=== PATIENT | male | born 1955 | race Caucasian/White ===

== ENCOUNTER 2022-01-21 08:03 | Emergency (ER) | payer MEDICARE, MEDICAID ==
[~2022-01-21] VITALS: Ht 177.8 cm; Wt 163.6 kg
[2022-01-21 08:18] VITALS: BP 134/77
[2022-01-21] MEDS ORDERED: bacitracin 15gm ointment TP ONE (09:10)
== END 2022-01-21 09:36 | disposition home or self-care (01) ==
LOC: ER 08:04
DX: R19.05 Periumbilic swelling, mass or lump (principal); Z88.0 Allergy status to penicillin
CPT/HCPCS: 99282

== ENCOUNTER 2023-03-15 14:42 | Emergency (ER) | payer OTHER, MEDICARE, MEDICAID ==
[~2023-03-15] VITALS: Ht 177.8 cm; Wt 140.0 kg
[2023-03-15 15:09] LABS: BASOPHILS # (AUTO) 0.1 X10'3 (0-0.2); BASOPHILS % (AUTO) 1.2 % (0-1); EOSINOPHILS # (AUTO) 0.1 X10'3 (0-0.9); EOSINOPHILS % (AUTO) 0.6 % (0-6); HEMATOCRIT 44.3 % (42.0-52.0); HEMOGLOBIN 15.4 g/dl (14.0-17.9); LYMPHOCYTES # (AUTO) 1.7 X10'3 (1.1-4.8); LYMPHOCYTES % (AUTO) 13.8 % (21-51); MEAN CORPUSCULAR HEMOGLOBIN 30.9 PG (27.0-31.0); MEAN CORPUSCULAR HGB CONC 34.7 g/dL (33.0-36.5); MEAN CORPUSCULAR VOLUME 89.1 FL (78-98); MONOCYTES # (AUTO) 0.7 X10'3 (0-0.9); MONOCYTES % (AUTO) 5.8 % (2-12); NEUTROPHILS # (AUTO) 9.6 X10'3 (1.8-7.7); NEUTROPHILS % (AUTO) 78.6 % (42-75); PLATELET COUNT 167 X10'3 (140-440); RED BLOOD COUNT 4.98 X10'6 (4.70-6.10); RED CELL DISTRIBUTION WIDTH 15.8 % (11.5-14.5); WHITE BLOOD COUNT 12.2 X10'3 (4.5-11.0)
[2023-03-15 15:20] LABS: ALANINE AMINOTRANSFERASE 21 U/L (12-78); ALBUMIN 3.6 G/DL (3.4-5.0); ALBUMIN/GLOBULIN RATIO 1.1 (1.1-1.5); ALKALINE PHOSPHATASE 104 IU/L (46-116); ANION GAP 12 (8-16); ASPARTATE AMINO TRANSFERASE 15 U/L (10-37); BILIRUBIN,TOTAL 0.9 MG/DL (0.1-1.0); BLOOD UREA NITROGEN 16 MG/DL (7-18); BUN/CREATININE RATIO 11.2 (10.0-20.0); CALCIUM 9.1 MG/DL (8.5-10.1); CHLORIDE 102 MMOL/L (99-107); CREATININE 1.43 MG/DL (0.60-1.10); GLUCOSE 187 MG/DL (70-104); POTASSIUM 3.6 MMOL/L (3.5-5.1); SODIUM 137 MMOL/L (135-145); TOTAL CARBON DIOXIDE 23.1 MMOL/L (24-32); TOTAL PROTEIN 6.9 G/DL (6.4-8.2); eGFR 49 ML/MIN
[2023-03-15 17:18] LABS: PLATELET ESTIMATE NORMAL; TOTAL CELLS COUNTED 100
[2023-03-15 18:29] VITALS: BP 122/55
== END 2023-03-15 18:30 | disposition home or self-care (01) ==
LOC: ER 14:43
DX: R55 Syncope and collapse (principal); E11.9 Type 2 diabetes mellitus without complications; I48.91 Unspecified atrial fibrillation; I10 Essential (primary) hypertension; Z86.73 Personal history of transient ischemic attack (TIA), and cerebral infarction without residual deficits; Z88.0 Allergy status to penicillin
CPT/HCPCS: 36415; 70450; 71045; 80053; 83880; 84484; 85007; 85025; 93005; 99285

== ENCOUNTER 2024-05-20 14:14 | Emergency (ER) | payer OTHER, MEDICARE, MEDICAID ==
[~2024-05-20] VITALS: Ht 177.8 cm; Wt 129.6 kg
[2024-05-20 14:32] VITALS: TEMP 96.8
[2024-05-20] MEDS: polyethylene glycol 3350 17gm powd pack PO ONE (17:13)
[2024-05-20] MEDS: lactulose 20gm/30ml cup PO ONE (17:13)
[2024-05-20] MEDS: magnesium citrate 296ml oral solution PO ONE (17:13)
[2024-05-20 18:22] VITALS: BP 149/79; PULSE 102; RESP 16; O2SAT 98
== END 2024-05-20 18:24 | disposition home or self-care (01) ==
LOC: ER 14:14
DX: K59.00 Constipation, unspecified (principal); I48.91 Unspecified atrial fibrillation; I10 Essential (primary) hypertension; E11.9 Type 2 diabetes mellitus without complications; Z88.0 Allergy status to penicillin; Z86.73 Personal history of transient ischemic attack (TIA), and cerebral infarction without residual deficits
CPT/HCPCS: 74018; 99284